=== PATIENT | female | born 1995 | race Caucasian/White ===

== ENCOUNTER 2017-05-03 10:18 | Inpatient (IN) ==
[2017-05-03] MEDS ORDERED: BRETHINE SUBQ PRN (19:43)
[2017-05-03] MEDS ORDERED: AMBIEN PO PRN (19:43)
[2017-05-03] MEDS ORDERED: TYLENOL PO PRN (19:43)
[2017-05-03] MEDS ORDERED: PEPCID PO PRN (19:43)
[2017-05-03] MEDS ORDERED: KEFZOL 1 GM/D5W 1 GM/50 ML IVPB IV PRN (19:43)
[2017-05-03] MEDS ORDERED: PEPCID IV PRN (19:43)
[2017-05-03] MEDS ORDERED: PITOCIN 30 UNITS/LR 30 UNITS/500 ML IV.SOLN IV SCH (19:43)
[2017-05-03] MEDS ORDERED: STADOL IV PRN ×2 (19:43)
[2017-05-03] MEDS: LR 1,000 ML IV ONE (20:30)
[2017-05-03 22:24] LABS: MANUAL DIFF NEEDED? NO
[2017-05-03 22:27] LABS: URINE SOURCE VOIDED
[2017-05-03 22:31] LABS: BASO% 0.2 % (0.0-0.8); EOS# 0.07 X1000 (0.0-0.7); EOS% 0.6 % (0.0-10.0); HEMATOCRIT 29.8 % (37.0-47.0); HEMOGLOBIN 9.4 g/dL (12.0-16.0); IMM GRAN# 0.01 X1000 (0.0-0.04); IMM GRAN% 0.1 % (0.0-0.5); LYMPH% 22.1 % (20.5-51.1); MCH 25.3 PG (27-31); MCHC 31.5 g/dL (33-37); MCV 80.3 FL (81-99); MONO# 1.15 X1000 (0.11-0.59); MONO% 10.6 % (1.7-9.3); MPV 13.4 FL (7.4-10.4); NEUT% 66.4 % (42.2-75.2); PLT 187 X1000 (130-400); RBC 3.71 XMIL (4.2-5.4)
[2017-05-03 22:39] LABS: UR AMPHETAMINES QUAL NONE DETECTED (NONE DETECT); UR BARBITUATES QUAL NONE DETECTED (NONE DETECT); UR BENZODIAZEPIN QUAL NONE DETECTED (NONE DETECT); UR CANNABINOIDS QUAL NONE DETECTED (NONE DETECT); UR COCAINE QUAL NONE DETECTED (NONE DETECT); UR MDMA QUAL NONE DETECTED (NONE DETECT); UR METHADONE QUAL NONE DETECTED (NONE DETECT); UR METHAMPHETAMINE QUAL NONE DETECTED (NONE DETECT); UR OPIATES QUAL NONE DETECTED (NONE DETECT); UR OXYCODONE QUAL NONE DETECTED (NONE DETECT); UR PCP QUAL NONE DETECTED (NONE DETECT); UR TCA QUAL NONE DETECTED (NONE DETECT)
[2017-05-03 22:50] LABS: BILIRUBIN URINE NEGATIVE (NEGATIVE); BLOOD URINE NEGATIVE (NEGATIVE); CLARITY CLEAR (CLEAR); COLOR YELLOW; GLUCOSE URINE NEGATIVE (NEGATIVE); LEUKOCYTES URINE 1+ (NEGATIVE); NITRITE URINE NEGATIVE (NEGATIVE); PH URINE 6.5; PROTEIN URINE NEGATIVE (NEGATIVE); SP GRAVITY URINE 1.015; UROBILINOGEN URINE NORMAL
[2017-05-03] MEDS ORDERED: CYTOTEC PO ONE (23:00)
[2017-05-04] MEDS: CYTOTEC PO SCH ×2 (02:46→09:54)
[2017-05-04] MEDS ORDERED: XYLOCAINE 1% INJ ONE (07:29)
[2017-05-04] MEDS ORDERED: MINERAL OIL PO ONE (07:29)
[2017-05-04] MEDS ORDERED: XYLOCAINE-MPF 1% INJ ONE (07:45)
[2017-05-04] MEDS ORDERED: SODIUM CHLORIDE 0.9% INJ PRN (08:45)
[2017-05-04] MEDS ORDERED: PHENERGAN IV PRN (08:45)
[2017-05-04] MEDS: STADOL IV PRN ×3 (09:00→13:55)
[2017-05-04] MEDS: ZOFRAN IV PRN ×2 (09:04→19:33)
[2017-05-04] MEDS: LR 1,000 ML IV ONE (11:00)
[2017-05-04] MEDS ORDERED: FENTANYL-BUPIV-NS 2 MCG-0.1% 200 ML EPIDURAL PRN (12:35)
[2017-05-04] MEDS ORDERED: NAROPIN 0.2% ONE (14:34)
[2017-05-04] MEDS ORDERED: LR 1,000 ML ONE (18:59)
[2017-05-04] MEDS ORDERED: METHERGINE ONE (21:05)
--- NOTE | 2017-05-04 21:43 | OPERATIVE NOTE ---
PROCEDURE DATE: 05/04/2017 PREDELIVERY DIAGNOSES: 1. Intrauterine at term. 2. Labor induction. 3. Maternal exhaustion. POST DELIVERY DIAGNOSES: 1. Intrauterine at term. 2. Labor induction. 3. Maternal exhaustion. 4. Inversion of the uterus. CONDITION: Stable. PHYSICIAN: Rashid Maher MD ANESTHESIA: Epidural with Abrahma Medina MD. FINDINGS: Viable female , 5 pounds 10 ounces. Placenta was placenta accreta resulting in the inversion of the uterus after delivery. This was replaced manually. Patient given Methergine afterwards. ESTIMATED BLOOD LOSS: 150 mL. COMPLICATIONS: No other complications. DESCRIPTION OF PROCEDURE: A 21-year-old primigravida at term for labor induction. Admitted last night for Cytotec this morning and artificially ruptured, started on Pitocin. Did well throughout the day. Became complete after approximately 12 hours. Began pushing. Became exhausted. occiput anterior, +3 presentation position. Vacuum was placed. With next push, the delivered occiput anterior over an intact perineum. Once head delivered, shoulders and rest of the body delivered without difficulty. The was placed on mother's abdomen. Cord was doubly clamped and cut. The care of infant taken over by nursery personnel. Cord blood was obtained. Three vessel cord noted. Gentle traction on the cord resulted in slowly delivering placenta with much pain to the mother. Once placenta delivered, it was determined it was a uterine inversion. The placenta was peeled off of the inside of the endometrium and once this was done, a fist was placed at the inverted fundus and then uterus was pushed back into place by pushing down on the abdomen with the left hand and right hand and fundus of the uterus until it was replaced back in normal presentation. Once this was done, she was given a vigorous massage and Methergine. No excessive bleeding is noted. All counts were correct. Expect routine . I will give 3 doses of Ancef. cc: Rashid Maher MD
[2017-05-04] MEDS ORDERED: PERICOLACE PO SCH (22:28)
[2017-05-04] MEDS ORDERED: MINERAL OIL PO PRN (22:28)
[2017-05-04] MEDS ORDERED: PITOCIN IM PRN (22:28)
[2017-05-04] MEDS ORDERED: PITOCIN 20 UNITS/LR 20 UNITS/1,000 ML IV.SOLN IV SCH (22:28)
[2017-05-04] MEDS ORDERED: NORCO-5 PO PRN (22:28)
[2017-05-04] MEDS ORDERED: BENADRYL PO PRN (22:28)
[2017-05-04] MEDS ORDERED: HYDROXYZINE IM PRN (22:28)
[2017-05-04] MEDS ORDERED: BENADRYL IV PRN (22:28)
[2017-05-04] MEDS ORDERED: PERI MEDS (DERMOPLAST/NUPERCAINAL/TUCKS) MISC PRN (22:28)
[2017-05-04] MEDS ORDERED: BOOSTRIX VACCINE IM ONE (22:28)
[2017-05-04] MEDS ORDERED: HYDROXYZINE PO PRN (22:28)
[2017-05-04] MEDS ORDERED: M-M-R II VACCINE SUBQ ONE (22:28)
[2017-05-04] MEDS ORDERED: CYTOTEC PO PRN (22:28)
[2017-05-04] MEDS ORDERED: PITOCIN 30 UNITS/LR 30 UNITS/500 ML IV.SOLN IV ONE (22:28)
[2017-05-04] MEDS ORDERED: AMBIEN PO PRN (22:28)
[2017-05-04] MEDS ORDERED: XYLOCAINE-MPF 1% INJ PRN (22:28)
[2017-05-04] MEDS: NORCO-10 PO PRN (22:42)
[2017-05-04] MEDS: KEFZOL 1 GM/D5W 1 GM/50 ML IVPB IV SCH (22:43)
[2017-05-04] MEDS: MOTRIN PO PRN (22:43)
[2017-05-05] MEDS: KEFZOL 1 GM/D5W 1 GM/50 ML IVPB IV SCH ×2 (06:28→14:40)
[2017-05-05 06:35] LABS: MANUAL DIFF NEEDED? NO
[2017-05-05 06:47] LABS: BASO% 0.1 % (0.0-0.8); EOS# 0.01 X1000 (0.0-0.7); EOS% 0.1 % (0.0-10.0); HEMATOCRIT 26.8 % (37.0-47.0); HEMOGLOBIN 8.3 g/dL (12.0-16.0); IMM GRAN# 0.04 X1000 (0.0-0.04); IMM GRAN% 0.2 % (0.0-0.5); LYMPH# 2.01 X1000 (1.2-3.4); LYMPH% 10.4 % (20.5-51.1); MCH 25.2 PG (27-31); MCV 81.5 FL (81-99); MONO# 1.95 X1000 (0.11-0.59); MONO% 10.1 % (1.7-9.3); MPV 13.3 FL (7.4-10.4); NEUT% 79.1 % (42.2-75.2); PLT 166 X1000 (130-400); RBC 3.29 XMIL (4.2-5.4)
[2017-05-05] MEDS: PRECARE PO SCH (09:41)
[2017-05-05] MEDS: MOTRIN PO PRN ×2 (13:36→23:58)
[2017-05-05] MEDS: NORCO-10 PO PRN (23:58)
[2017-05-06 08:23] VITALS: BP 111/60
[2017-05-06] MEDS: PRECARE PO SCH (08:24)
== END 2017-05-06 12:20 | disposition home or self-care (01) ==
LOC: P.LD 19:40 → P.WC 05-05 07:37
PROVIDERS: ADMIT Obstetrics & Gynecology; ATTEND Obstetrics & Gynecology